=== PATIENT | male | born 1960 | race Caucasian/White ===

== ENCOUNTER 2023-10-04 18:55 | Inpatient (IN) | payer OTHER, SELFPAY ==
[2023-10-04] VITALS (10 sets, daily range): BP systolic 120–175; BP diastolic 56–93; BMI 27.0
--- NOTE | 2023-10-04 15:50 | ED.GENMED ---
History of Present Illness
General
Chief Complaint: Swallowing Problem
Source: patient and family
Exam Limitations: none
Time Seen by Provider: 10/04/23 15:09
Nursing documentation reviewed up to this point in time: agreed with
History of Present Illness
History of Present Illness:
63-year-old male diabetic TIA a month ago slurred speech started yesterday associated with headache, similar but less severe to when he had a TIA was admitted to the hospital in [place] and negative MRI negative carotids at that time was on 21 days
of Plavix and then switch to aspirin he states he did not have any aspirin for 4 days but did take it today
Daughter who is with him states yesterday his speech seemed off patient states he had trouble swallowing
Past History
Past History
ED Past Medical History: CVA (TIA), HTN and NIDDM
Social History
Tobacco: Non-smoker
Alcohol: None
Drug: None
Personal:
Living: with family
Employment: Retired
Review of Systems
Review of Systems
All Other Systems: Not applicable
Constitutional: Denies fever or fatigue
EENT: Reports no symptoms
Respiratory: Reports no symptoms
Cardiac: Reports no symptoms
ABD/GI: Reports no symptoms
: Reports no symptoms
Neurological: Reports headache and other (Slurred speech, trouble swallowing)
Hematologic/Lymphatic: Reports no symptoms
Phy Exam
Physical Exam
Physical Exam:
Physical Exam
General: no apparent distress, not acutely ill
Neck: No joint midline trachea
Heart: s1/s2 regular rate and rhythm, no murmur. equal radial pulses.
Lungs: no acute respiratory distress. clear bilaterally
Abdomen: Nontender
Neuro: alert and oriented. Speech is slightly slurred muscle strength 5 out of 5 no tenderness over the temporal artery
Skin: no rash
Psychiatric: well kept. interactive and cooperative
Extremities: no edema.
Course
Orders/Labs/Results
Orders:
Orders
10/04/23 14:[address] [CT Head W/o Iv Contrast] Urgent
Comment:
Reason For Exam: hx of TIA, dysphagia
10/04/23 15:50
Cardiac Monitoring- Treatment ONCE
Complete Blood Count/With Diff Urgent
Comprehensive Metabolic Panel Urgent
PTT Urgent
Prothrombin Time Urgent
10/04/23 15:51
Electrocardiogram (*1) Stat
Reason for Study: Other
Other Reason for Exam: neuro symptoms
EKG- Treatment ONCE
ESR [Erythrocyte Sed Rate] Urgent
Vital Signs
Initial and Last Documented VS:
Initial Vital Signs
Temp Pulse Resp BP Pulse Ox
98.3 F 88 18 175/93 99
10/04/23 14:03 10/04/23 14:03 10/04/23 14:03 10/04/23 14:03 10/04/23 14:03
Last Documented Vital Signs
Temp Pulse Resp BP Pulse Ox
98.3 F 66 18 150/80 96
10/04/23 14:03 10/04/23 15:12 10/04/23 15:12 10/04/23 15:12 10/04/23 15:12
MDM/Problems Addressed
Differential Diagnosis Includes:
TIA CVA mass malignancy temporal arteritis other stroke mimic hypertensive urgency
MDM/Problems Addressed:
Slurred speech trouble swallowing
Chronic conditions affecting care: DM and HTN
Acute Exacerbation and/or Progression of Chronic Illness: DM and HTN
*Radiology
Radiology exam reviewed: radiology read reviewed
*Pulse Oximetry
Patient hypoxic: no
*EKG
Interpreted by ED Provider?: Yes
Interpretation: abnormal
Comparison EKG: no comparison EKG present
Heart Rate: 78
Rate: normal
Rhythm: sinus
Ischemia: no ischemia
*Soaping Machine Back Tender Interpretation
Rate: normal
Interpretation: normal
Heart Rate: 78
Rhythm: sinus
*Critical Care Note
Total Time (30-74mins, 75-104mins- exclusive of procedures): Not Applicable
Update Note
Update Note:
Update concern for TIA or CVA CT noted symptoms are mild but I think the real versus recrudescence, most recent symptoms started about 24 hours ago therefore not a lytic candidate he was off his aspirin for 4 days
ED Attending Note
-
Portions of this chart may have been created with voice recognition software.� Occasional wrong word or��sound alike� substitutions may have occurred due to the inherent limitations of voice recognition software.
Discharge Plan
Departure
Patient Disposition: Admit
Date of Disposition: 10/04/23
Time of Disposition: 15:54
Admit to: Telemetry
Presentation/result/management discussed w/ accepting MD/DO: Hospitalist
Patient with high blood pressure during this ER visit?: Yes
Condition: Good
Discharge Problem:
Brain TIA
Interventions
Interventions:
*Risk Screen - Suicide Last Done: 10/04/23 14:05
*General Assessment Last Done: 10/04/23 14:05
*Neglect/Abuse Screening Last Done: 10/04/23 14:05
Discharge Date and Time
Print Language: LATVIAN
[2023-10-04 16:06] LABS: % Basophils 0.7 % (0-2); % Eosinophils 1.6 % (0-6); % Immature Granulocytes 0.4 % (0-0.5); % Lymphocytes 28.5 % (20.5-51.1); % Monocytes 9.1 % (1.7-9.3); % Neutrophils 59.7 % (42.2-75.2); Absolute Eosinophils 0.1 10^3/uL (0-0.7); Absolute Lymphocytes 1.6 10^3/uL (1.2-3.4); Absolute Monocytes 0.5 10^3/uL (0.1-0.6); Absolute Neutrophils 3.4 10^3/uL (1.4-6.5); Hematocrit 37.1 % (39.0-52.0); Hemoglobin 12.6 g/dL (13.0-18.0); Mean Corpuscular Hgb 28.4 pg (27.0-31.0); Mean Corpuscular Volume 83.6 fL (80.0-94.0); Nucleated Red Blood Cells % 0 % (-); Platelet Count 391 10^3/uL (130-400); Red Blood Cell Count 4.44 10^6/uL (4.70-6.10); Red Cell Dist. Width 13.3 % (11.5-14.5); White Blood Cell Count 5.7 10^3/uL (4.8-10.8)
[2023-10-04 16:16] LABS: Erythrocyte Sed Rate 14 mm/hour (0-20); INR 1.09
[2023-10-04 16:17] LABS: APTT 32.1 Sec (23.4-35.0)
[2023-10-04 16:20] LABS: ALT (SGPT) 16 U/L (0-50); AST (SGOT) 21 U/L (17-59); Albumin 4.4 g/dl (3.5-5.0); Alkaline Phosphatase 48 U/L (38-126); Blood Urea Nitrogen 22 mg/dl (9-20); Carbon Dioxide 27 mmol/L (22-30); Chloride 102 mmol/L (98-107); Glucose 130 mg/dl (70-99); Potassium 4.5 mmol/L (3.5-5.1); Sodium 139 mmol/L (135-145); Total Bilirubin 0.5 mg/dl (0.2-1.3); Total Protein 7.2 g/dl (6.3-8.2); eGFR > 60.00
[2023-10-04] MEDS: ASPIRIN 325 MG PO (16:27)
[2023-10-04] MEDS: TYLENOL 650 MG PO (16:27)
--- NOTE | 2023-10-04 17:52 | HPS.HSE ---
Addendum entered and electronically signed by Tony Tanner MD 10/05/23 08:01:
I personally performed a history and physical exam of the patient and discussed management with the resident. I reviewed the resident's note and agree with the documented findings and plan of care HPI/CC.
Original Note:
Family Physician
-
Family Physician: Jasper Muñoz
Chief Complaint
-
Speech difficulty
History of Present Illness
63-year-old male with history of type 2 diabetes, who presented to the ED with slurred speech, headache, and difficulty swallowing. Slurred speech which patient describes as a 'heavy tongue' with right sided tongue swelling and leftward deviation,
began yesterday at about 2:30pm while pt was having pizza with his family. Pt and his daughter noticed slurred speech.
Headache is a daily recurring headache x 2 months starting on right posterior neck, radiating forward to his right eye. Not helped by over the counter analgesics or Oxycodone.
Chronic swallowing difficulty which patient attributes to history of cervical spine osteophytes, however, it appears to be worse with his swollen tongue and speech difficulty. He also describes a chronic, intermittent right eye swelling with tearing
which he says has been going on for years.
Patient denies any new foods/condiments prior to onset, no recent illness, changes in vision or hearing, LOC, trauma or other neurologic deficits.
History of similar presentation (swollen left-deviated tongue, slurred speech) on August 31 in [place], where he was admitted to [facility] for TIA. CTA head and neck, MRI brain, Echo were benign. He recalls being treated with a steroid and
symptoms resolved within one week of onset.
Medical History
Past Medical History
Past Medical History: Reports NIDDM and Other (TIA)
Past Surgical History: Reports Orthopedic (Multiple right knee surgeries)
Social History
Tobacco: Non-smoker
Alcohol: Occasional
Drug: None
Personal:
Living: With Family
Employment: Retired
Family History
Family History: Diabetes
Allergies / Home Medications
Allergies reflects when Allergies were last updated in [employer].
Home Medications with original date entered in [employer]
Allergy/Medication List:
Allergies
Allergy/AdvReac Type Severity Reaction Status Date / Time
Penicillins Allergy Mild Rash Verified 10/04/23 14:14
azithromycin AdvReac Intermediate abdominal Verified 10/04/23 14:14
pain
Home Medications
aspirin 81 mg chewable tablet 81 mg PO DAILY 10/04/23
atorvastatin 20 mg tablet 20 mg PO QPM 10/04/23
fenofibrate 160 mg tablet 160 mg PO QPM 10/04/23
insulin lispro protamine-lispro 100 unit/mL (75-25) subcutaneous pen 23 unit SC QPM 10/04/23
insulin lispro protamine-lispro 100 unit/mL (75-25) subcutaneous pen 25 unit SC DAILY 10/04/23
lidocaine 5 % topical patch (Lidoderm) 1 patch topical DAILYPRN PRN back pain 10/04/23
metformin 500 mg tablet,extended release 24 hr 1,000 mg PO BIDWMEAL 10/04/23
oxycodone 10 mg tablet 10 mg PO Q6HPRN PRN moderate pain 10/04/23
pantoprazole 40 mg tablet,delayed release 40 mg PO DAILY 10/04/23
semaglutide 1 mg/dose (4 mg/3 mL) subcutaneous pen injector (Ozempic) 1 mg SC SA 10/04/23
Review of Systems
-
History Source: Patient
Constitutional: Denies Fever or Fatigue
EENT: Reports Other (Right tongue swelling, swallowing difficulty); Denies Sore Throat or Mouth Pain
Respiratory: Denies No Symptoms
Cardiac: Denies No Symptoms
Abdomen/GI: Denies No Symptoms
Neurological: Reports Headache and Other (no changes in vision); Denies Dizzy, Weakness or Numbness
Physical Exam
Vital Signs
Vital Signs
Temp Pulse Resp BP Pulse Ox
98.3 F 68 17 153/79 98
10/04/23 14:03 10/04/23 16:00 10/04/23 16:00 10/04/23 16:00 10/04/23 16:00
Physical Exam
General: Well Developed, Well Nourished, No Apparent Distress, Comfortable and Conversant; No Respiratory Distress
HEENT: NormoCephalic, Moist mucous membranes and Other (swollen right tongue, with no redness/lesions. no scalp tenderness); No Anicteric
Respiratory: Clear and Non Labored Respirations; No Wheezes, Rales, Rhonchi or Crackles
Cardiac: S1/S2, Regular Rhythm and Tracey's Sign; No Murmur, Rub, Peripheral Edema, Calf Tenderness or Carotid Bruits
Musculoskeletal: Other (mild tenderness to palpation over right superior trapezius muscle); No Clubbing, No Clubbing or No Edema
Skin: Warm and Dry; No Rash, Jaundice, Ulcers or Lesions
Neuro: Awake, Alert, Oriented, AO x 3, No Motor Deficits, Nonfocal/grossly intact, No Sensory Deficits and Other (Leftward deviation of tongue on forward protrusion. Minimal rightward tongue movement, full movement of tongue to left side); No Tremors
Psych: Calm
Laboratory Results
-
10/04/23 15:56
10/04/23 15:56
Laboratory Results
PT 14.0 Sec (11.4-14.6) 10/04/23 15:56
INR 1.09 10/04/23 15:56
APTT 32.1 Sec (23.4-35.0) 10/04/23 15:56
Total Bilirubin 0.5 mg/dl (0.2-1.3) 10/04/23 15:56
AST 21 U/L (17-59) 10/04/23 15:56
ALT 16 U/L (0-50) 10/04/23 15:56
Alkaline Phosphatase 48 U/L (38-126) 10/04/23 15:56
Impression/Plan
-
IMPRESSION:
63-year-old male with history of type 2 diabetes, who presented to the ED with slurred speech, headache, and swallowing difficulty
PLAN:
Speech difficulty/swallowing difficulty/tongue swelling
Likely angioedema, unclear cause
Unrelated to specific new foods or medications
Longstanding history of intermittent right eye swelling with watering.
Unlikely TIA/CVA: Similar presentation 5 weeks ago with normal CTA head/neck, brain MRI. No other neurological deficits
-Speech evaluation
-CT neck with contrast. Will consider CT of cervical spine
-Clear liquids for now given risk of aspiration
-Decadron, antihistamines (Benadryl, famotidine)
Type 2 diabetes mellitus
-Hold metformin for contrast CT
-Continue insulin home doses
-Low res insulin sliding scale, Accu-Cheks
History of TIA:
Questionable, given similar presentation
-Continue aspirin 81 mg
DVT prophylaxis: Lovenox subQ
CODE STATUS: Full code
--- NOTE | 2023-10-04 18:32 | W.PN.UPDATE ---
Update Note
Progress Note Update
Seen and examined by me independently in collaboration with resident Danni.
Past medical history/social history/medications/allergies reviewed.
Lab data and imaging data reviewed.
Patient with a history of diabetes hypertension and a history of possible TIA while he was down in [place] last month presents back with trouble with speech which is garbled and swallowing difficulty. He started to notice the symptoms since
yesterday. Along with that he has a right-sided headache starting in the base of the neck all the way up to the right high. The headache is been going on for 7 weeks. Pretty much daily. He apparently had a cervical disc problem in the past with
osteophytes. That was 2 years ago. And there was probably asymptomatic after that. There was some discussions about surgery need then.
He himself noticed tongue swelling since yesterday. He also noted tongue deviated to the left because of right-sided tongue swelling. It was far worse when it happened last time when he was in [place].
When he was down in [place] for TIA workup he actually went because his tongue was swollen and he had a speech and swallowing difficulty. He tells me that he had a dose of steroids and he had benefit with this tongue swelling. His tongue swelling
resolved over a week. No prior history of angioedema's of the tongue. He was worried if starting of Ozempic made a difference so he stopped that. Other than Ozempic he was on his usual medication without major changes. Not on JOSEY inhibitors or
ARB. Despite all of Ozempic a had recurrence of his tongue swelling. He said post TIA he was put on 21 days of dual antiplatelet agents and since he thought it was not TIA and more tongue issue he stopped taking aspirin 4 days ago. He took it
today again with his recurrence of symptoms.
No motor weakness or sensory disturbances.
Tongue swelling predominantly right-sided noted. Tongue deviated to the left. Uvula central. No facial nerve weakness. No motor weakness.
No cervical lymphadenopathy.
Hemodynamics noted.
Garbled speech with swallowing difficulty suspect more related to tongue swelling. Rule out pharyngeal wall edema coming in the way of swallowing. Seems to be recurrent. More concerned about recurrent angioedema scenario. Rule out any structural
neck issue.
Clinically not sounding like a TIA. I cannot explain his headache which I suspect may be cervical disc disease.
Will start on steroids and Benadryl. Will obtain a CT of the neck with contrast.
Follow clinical response to steroids and CT imaging and if it turns out to be angioedema we will refer to allergy and immunology.
--- NOTE | 2023-10-04 21:30 | PTCARENOTE ---
Received patient from ER. stable vitals. AAOx3. c/o 06/22 right side neck pain ( chronic). NPO. Sinus rhythm on tele. POC reviewed with patient.
[2023-10-04] MEDS: BENADRYL 25 MG IV (21:31)
[2023-10-04] MEDS: NSS 1000 IV (21:33)
[2023-10-04] MEDS: DECADRON 4 MG IV (21:33)
[2023-10-04] MEDS: NSS (PRESERVATIVE FREE) 8 ML IV (21:35)
[2023-10-04] MEDS: PEPCID 20 MG IV (21:35)
[2023-10-04] MEDS: TRICOR 145 MG PO (21:38)
[2023-10-04] MEDS: LOVENOX 40 MG SC (21:38)
[2023-10-04] MEDS: LIPITOR 40 MG PO (21:42)
[2023-10-05 00:28] LABS: Glucose - Point of Care 176 mg/dl (70-99)
[2023-10-05] MEDS: NOVOLOG FLEXPEN-LOW RESISTANCE 1 UNITS SC (00:31)
[2023-10-05 03:22] VITALS: BP 124/55
[2023-10-05] MEDS: BENADRYL 25 MG IV ×4 (04:17→20:42)
[2023-10-05 06:09] LABS: Glucose - Point of Care 214 mg/dl (70-99)
[2023-10-05] MEDS: NOVOLOG FLEXPEN-LOW RESISTANCE 2 UNITS SC (06:10)
[2023-10-05] MEDS: DECADRON 4 MG IV ×3 (06:11→20:42)
[2023-10-05 07:24] VITALS: BP 111/53
[2023-10-05 08:00] LABS: Glucose - Point of Care 234 mg/dl (70-99)
[2023-10-05] MEDS: PEPCID 20 MG IV (09:11)
[2023-10-05] MEDS: NSS (PRESERVATIVE FREE) 8 ML IV (09:11)
[2023-10-05] MEDS: LOW STRENGTH ASPIRIN 81 MG PO (09:12)
[2023-10-05] MEDS: NSS 1000 IV (09:15)
[2023-10-05 11:46] VITALS: BP 144/74
--- NOTE | 2023-10-05 11:53 | PTOTSP ---
SPEECH THERAPY SWALLOW/SPEECH/LANGUAGE/COGNITIVE COMMUNICATION EVALUATION:
Patient exhibits clinical signs of oral dysphagia, in patient with known osteophytes per patient report. Patient with history of globus sensation in throat with osteophytes, which patient reported using compensatory strategies including liquid wash
and taking small bites/sips to accommodate. Patient currently without CXR. WBC WNL and breathing comfortably on room air. At this time, current oral dysphagia symptoms appear to be acutely related to Right lingual swelling. Chronic pharyngeal
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 Recommend Regular texture diet and thin liquids with aspiration
precautions including: Upright positioning; Small single sips/bites; Slow rate of intake; Liquid wash/alternate textures; Check for pocketing on Right; Chew on Left; Finger/lingual sweep. Medications whole with liquid, one at a time. Could consider
an Outpatient VSE to further assess pharyngeal swallow function if concern for swallow safety and/or aspiration arises. At this time, swallow safety appears intact while swallow efficiency appears to be impaired due to lingual swelling. Speech
therapy to follow, assess diet tolerance and modify as appropriate, monitor CXR and labs, determine indication for inpatient VSE if indicated/appropriate, and provide continued diagnostic swallow therapy as appropriate.
Patient exhibits mild speech impairment characterized by mild dysarthria and reduced articulatory accuracy secondary to lingual swelling. Expressive and receptive language, voice, and cognitive communication skills appear grossly WFL at this time.
Speech therapy for dysarthria is not indicated at this time; patient educated on compensatory strategies and etiology of tongue swelling remains unknown.
RECOMMEND:
1) Regular texture diet and thin liquids
2) Aspiration precautions: Upright positioning; Small single sips/bites; Slow rate of intake; Liquid wash/alternate textures; Check for pocketing on Right; Chew on Left; Finger/lingual sweep
3) Medications whole with liquid, one at a time
4) consider an Outpatient VSE to further assess pharyngeal swallow function if concern for swallow safety and/or aspiration arises
5) Speech therapy to follow
[2023-10-05 12:02] LABS: Glucose - Point of Care 281 mg/dl (70-99)
--- NOTE | 2023-10-05 12:47 | W.PN.HOSP.TC ---
Documented by User: Danni Bullard MD, Resident 10/05/23 13:46
Today's Communication/Plan
-
Barium swallow, ENT
Assessment / Plan
Assessment / Plan
IMPRESSION:
63-year-old male with history of type 2 diabetes, who presented to the ED with slurred speech, headache, and swallowing difficulty
PLAN:
Speech difficulty/swallowing difficulty/tongue swelling
Likely angioedema, unclear cause
Unrelated to specific new foods or medications. Patient discontinued Ozempic after first occurrence. Was not on aspirin prior to first occurrence.
Longstanding history of intermittent right eye swelling with watering.
Unlikely TIA/CVA: Similar presentation 5 weeks ago with normal CTA head/neck, brain MRI. No other neurological deficits
-Speech evaluation: Recommend Regular texture diet and thin liquids with aspiration precautions including: Upright positioning; Small single sips/bites; Slow rate of intake; Liquid wash/alternate textures; Check for pocketing on Right; Chew on Left;
Finger/lingual sweep. Medications whole with liquid, one at a time
-CT neck with contrast. Will consider CT of cervical spine
-Restart diet
-Decadron, antihistamines (Benadryl, famotidine)
Type 2 diabetes mellitus
-Diabetic diet
-Hold metformin for contrast CT
-Continue insulin home doses
-Low res insulin sliding scale, Accu-Cheks
History of TIA:
Questionable, given similar presentation
-Continue aspirin 81 mg
DVT prophylaxis: Lovenox subQ
CODE STATUS: Full code
Anticipated Discharge: Within 24 hours
Subjective/Interval History
-
Date of Service: October 05, 2023
Objective Data
-
Vital Signs:
Vital Signs
Temp Pulse Resp BP Pulse Ox
97.7 F 94 18 144/74 97
10/05/23 11:46 10/05/23 11:46 10/05/23 11:46 10/05/23 11:46 10/05/23 11:46
I&O
10/04/23 10/05/23 10/06/23
06:59 06:59 06:59
Intake Total 800 / 800
Balance 800 / 800
Review of Systems
-
History Source: Patient
EENT: Reports Other (Slurred speech and right sided swelling of tongue)
Abdomen/GI: Reports No Symptoms; Denies Abdominal Pain
Neuro: Reports Headache (originating in right superior trapezius, radiating to right eye); Denies Weakness or Numbness
Physical Exam
-
General: Well Developed, Well Nourished, No Apparent Distress and Comfortable
HEENT: Moist Mucous Membranes, PERRLA and Other (Right sided tongue swelling. Left-sided tongue deviation)
Respiratory: Clear to Auscultation and Non Labored Respirations; Negative Wheezes, Rales, Rhonchi or Crackles
Cardiac: Regular Rhythm and S1/S2; Negative Murmur, Rub or Calf Tenderness
GI: Soft, Nontender, Nondistended and Normal Bowel Sounds
Musculoskeletal: No Clubbing, No Cyanosis and No Edema
Skin: Warm and Dry; Negative Rash or Ulcers
Neuro: Awake, Alert, Oriented, AO x 3, No Motor Deficits and Nonfocal/Grossly Intact
Psych: Calm

Documented by User: Tony Tanner MD 10/05/23 15:14
Assessment / Plan
Assessment / Plan
IMPRESSION:
63-year-old male with history of type 2 diabetes, who presented to the ED with slurred speech, headache, and swallowing difficulty
PLAN:
Speech difficulty/swallowing difficulty/tongue swelling
Likely angioedema, unclear cause
Unrelated to specific new foods or medications. Patient discontinued Ozempic after first occurrence. Was not on aspirin prior to first occurrence.
Unlikely TIA/CVA: Similar presentation 5 weeks ago with normal CTA head/neck, brain MRI. No other neurological deficits
-Speech evaluation: Recommend Regular texture diet and thin liquids with aspiration precautions including: Upright positioning; Small single sips/bites; Slow rate of intake; Liquid wash/alternate textures; Check for pocketing on Right; Chew on Left;
Finger/lingual sweep. Medications whole with liquid, one at a time
-Restart diet
-Decadron, antihistamines (Benadryl, famotidine)
- [facility] personnel administrator - since no acute airway issues recs follow up with them as OP for angioedema.
- While searching for Causes of angioedema-hold statins in the fenofibrate which is in the literature states that is a possibility.
Dysphagia-there are 2 issues-there is chronic dysphagia and acute from tongue swelling. 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 Get a barium swallow to evaluate further. Consult spinal surgery. Continue with the steroids for
possible angioedema. Cleared for oral diet by speech today.
Type 2 diabetes mellitus
-Diabetic diet
-Hold metformin for contrast CT
-Continue insulin home doses
-Low res insulin sliding scale, Accu-Cheks
History of TIA:
Questionable, given similar presentation
-Continue aspirin 81 mg
DVT prophylaxis: Lovenox subQ
CODE STATUS: Full code
[2023-10-05] MEDS: NOVOLOG FLEXPEN-LOW RESISTANCE 300 UNITS SC (13:43)
[2023-10-05] MEDS: NOVOLOG FLEXPEN 9 UNITS SC (15:03)
[2023-10-05 15:45] VITALS: BP 138/75
--- NOTE | 2023-10-05 16:27 | CM ---
Met with pt and his daughter at bedside
Lives with his daughter, her and family
Independent, driving
Has ride at d/c
DME - none
SNF/HH - denies past hx
PCP - Dr Ashok Muñoz
Pharm - [facility]
CM will follow for d/c needs
Plan - anticipate home no needs at d/c
[2023-10-05] MEDS: LIPITOR 40 MG PO (17:44)
[2023-10-05] MEDS: TRICOR 145 MG PO (17:44)
[2023-10-05] MEDS: LOVENOX 40 MG SC (17:45)
[2023-10-05 17:46] LABS: Glucose - Point of Care 301 mg/dl (70-99)
[2023-10-05] MEDS: NOVOLOG FLEXPEN-MODERATE RESISTANCE 7 UNITS SC (17:48)
[2023-10-05] MEDS: NOVOLOG MIX 22 UNITS SC (17:49)
[2023-10-05 19:51] VITALS: BP 120/62
[2023-10-05] MEDS: PEPCID 20 MG PO (20:44)
[2023-10-05 20:59] LABS: Glucose - Point of Care 380 mg/dl (70-99)
[2023-10-05] MEDS: NOVOLOG FLEXPEN 10 UNITS SC (21:35)
[2023-10-05 23:08] VITALS: BP 107/64
[2023-10-06 00:08] LABS: Glucose - Point of Care 222 mg/dl (70-99)
[2023-10-06] MEDS: BENADRYL 25 MG IV ×2 (02:44→10:25)
[2023-10-06 03:40] VITALS: BP 115/52
[2023-10-06] MEDS: DECADRON 4 MG IV (05:35)
[2023-10-06 05:53] LABS: Hematocrit 34.5 % (39.0-52.0); Hemoglobin 11.9 g/dL (13.0-18.0); Mean Corp Hgb Conc. 34.5 g/dL (33.0-37.0); Mean Corpuscular Volume 84.1 fL (80.0-94.0); Mean Platelet Volume 10.2 fL (7.4-10.4); Platelet Count 362 10^3/uL (130-400); Red Cell Dist. Width 13.1 % (11.5-14.5); White Blood Cell Count 11.8 10^3/uL (4.8-10.8)
[2023-10-06 06:12] LABS: Blood Urea Nitrogen 30 mg/dl (9-20); Calcium 9.4 mg/dl (8.4-10.2); Carbon Dioxide 25 mmol/L (22-30); Chloride 101 mmol/L (98-107); Estimated Creatinine Clearance 73 ml/min; Glucose 285 mg/dl (70-99); Potassium 4.5 mmol/L (3.5-5.1); Sodium 135 mmol/L (135-145); eGFR > 60.00
[2023-10-06 07:00] VITALS: BP 129/69
[2023-10-06] MEDS: LOW STRENGTH ASPIRIN 81 MG PO (08:14)
[2023-10-06] MEDS: PEPCID 20 MG PO (08:14)
[2023-10-06] MEDS: NOVOLOG FLEXPEN-MODERATE RESISTANCE 7 UNITS SC ×2 (08:36→13:06)
[2023-10-06 08:39] LABS: Glucose - Point of Care 306 mg/dl (70-99)
--- NOTE | 2023-10-06 09:57 | PN.DE.MGMTRT ---
Insulin Management
- -
10/06/2023: Diabetes Management Consult
63 year old male who presented to the ED with slurred speech, headache, and swallowing difficulty with tongue swelling likely due to angioedema.
PMH: HTN, T2DM, Patient reports taking Ozempic 1mg weekly, insulin 75/25, 14 units in AM and 12 units in PM.
He reports that sx started ~ 5 weeks ago and that he stopped taking Ozempic because he thought he was having an adverse reaction.
He then increased his insulin dose to 24 units in AM and 22 units in PM and continued taking the Metformin but not the Ozempic.
Pt states that his A1C and blood sugars were well controlled ~7% prior to onset of all these issues.
It is noted that pt was txt in [place] with oral steroids for similar sx, which pt states has made his blood sugars to go up.
Current A1C 8% Cr 1.1, eGFR >60. Pt uses CGM- [employer]uro 3 for glucose monitoring at home.
Pt Awake, A/O x3, sitting up in chair, reports ongoing tongue swelling with speech difficulties. Able to discuss diabetes mgt
He was started on IV steroids- Dexa 4mg Q8 hrs contributing to Hyperglycemia; 214 to 380 yesterday.
Of note, his 1st dose of 70/30 was last night, pt received 22 units @ HS, Fasting glucose 285 this AM
Will increase AM dose of 70/30 to 28 units and PM dose to 24 units while on steroids. Cont moderate corrective insulin with meals.
Change diet from 2200 sharif to 1800 sharif. Had lengthy d/w pt regarding increased insulin requirement while on steroids.
Will cont to follow. Metformin remains on Hold.
Diabetes History
- -
Type of Diabetes: 2 requiring insulin
Pre-Admission Diabetes Regimen
10/06/23
05:30
Creatinine 1.1
Lab Results
Hemoglobin A1c Cancelled 10/05/23 06:00
Insulin Pump Settings
IP Diabetes Regimen
10/05/23 10/05/23 10/05/23
12:01 17:45 20:56
Glucose
POC Glucose 281 H 301 H 380 H
10/06/23 10/06/23 10/06/23
00:06 05:30 08:37
Glucose 285 H
POC Glucose 222 H 306 H
Patient Education
[2023-10-06] MEDS: NOVOLOG MIX 70/30 FLEXPEN 24 UNITS SC (10:10)
[2023-10-06 10:12] LABS: Glucose - Point of Care 298 mg/dl (70-99)
[2023-10-06 11:00] VITALS: BP 134/62
--- NOTE | 2023-10-06 12:42 | CON.NS ---
Consultation
-
Date/Time Consultation Performed: 10/06/2023; 12:45 pm
Performing Provider: Dwayne
Chief Complaint
History of Present Illness
This is a neurosurgical consultation on a 63-year-old gentleman who presents with an episode of slurred speech, headache, difficulty swallowing. He has a past medical history of type 2 diabetes. He reports that he has sensation that he had a heavy
tongue with right tongue swelling and left for tongue deviation, with slurred speech. He also reports a daily recurring headache for the past 2 months. 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
chronic, intermittent right eye swelling and tearing. He does report a similar episode that happened approximately 1 month prior in [place]. At that time stroke workup was negative. He reports that he was on steroids and the symptoms resolved
within 1 week of onset. He underwent a speech evaluation, and ultimately barium swallow today. He also underwent a CT scan of the cervical spine with contrast.
Patient had barium swallow test/evaluation today which demonstrates moderate airway aspiration of barium contrast. He was unable to swallow barium impregnated tablet. It was noted that there was evidence of the contrast passing through the
esophagus without evidence for obstruction. While there was evidence of severe impingement of the posterior wall of the cervical esophagus it was also noted that the patient was unable to pass the tablet from the mouth into the esophagus.
Patient seen and examined. He was noted to be eating a full, normal lunch.
He reports that he feels like he did not follow the directions appropriately, therefore, that might be why he 'messed up 'the barium swallow test.
He reports that he did see a surgeon prior in [place], who diagnosed him with DISH, and did discuss resection of the anterior osteophytes to help with his chronic swallowing difficulties.
He reports that the his new symptoms are quite different, and while his symptoms of dysarthria, and swallowing improved after his episode on September 01, 2023, they have recurred and his slurred speech has persisted.
Review of Systems
-
10 point review of systems including constitutional, ENT, cardiovascular, respiratory, GI, , neurologic, hematologic, and quadrant was performed and was negative, except for as stated in HPI.
Medication and Allergies
Home Medications
Home Medications
�Medication �Instructions �Recorded
aspirin 81 mg chewable tablet 81 mg PO DAILY Blood Clot 10/04/23
Prevention/Tx
atorvastatin 20 mg tablet 40 mg PO QPM High Cholesterol 10/04/23
fenofibrate 160 mg tablet 160 mg PO QPM High Cholesterol 10/04/23
lidocaine 5 % topical patch 1 patch topical DAILYPRN PRN back 10/04/23
(Lidoderm) pain
metformin 500 mg tablet,extended 1,000 mg PO BIDWMEAL Diabetes 10/04/23
release 24 hr
oxycodone 10 mg tablet 10 mg PO Q6HPRN PRN moderate pain 10/04/23
pantoprazole 40 mg tablet,delayed 40 mg PO DAILY Gastrointestinal 10/04/23
release Issue
semaglutide 1 mg/dose (4 mg/3 mL) 1 mg SC SA Diabetes 10/04/23
subcutaneous pen injector (Ozempic)
insulin lispro protamine-lispro 22 unit SC QACDINNER Diabetes 10/05/23
100 unit/mL (75-25) subcutaneous
pen
insulin lispro protamine-lispro 23 - 25 unit SC DAILY Diabetes 10/05/23
100 unit/mL (75-25) subcutaneous
pen
Allergies
Allergies
Allergy/AdvReac Type Severity Reaction Status Date / Time
azithromycin Allergy abdominal Verified 10/04/23 20:42
pain
Penicillins Allergy Rash Verified 10/04/23 20:42
Physical Exam
-
Exam:
Awake, alert, no apparent distress.
Pupils are equal and reactive.
Extraocular movements are full without nystagmus.
Face is symmetric.
Tongue is deviated to the left
Positive dysarthria
Uvula deviated to the left as well
Shoulder shrug symmetrical
Motor: 5/5 strength bilaterally in upper extremities and lower extremities.
Sensation to light touch intact in bilateral upper extremities lower extremities.
Gait steady
Reflexes 2+ and symmetric
Normal tone
No evidence of clonus
CT scan of the head performed on 10/04/2023 is negative for obvious lesion within the area of the jugular foramen or hypoglossal canal. CT of the head and neck with contrast performed on 10/04/2023 fails to demonstrate any obvious lesion at the level
of the jugular foramen or hypoglossal canal. There is evidence of large anterior osteophytes extending from C3-C7 noted.
CT of the neck with IV contrast performed on 10/04/2023 was reviewed. 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
Problems
-
Problem Status Onset Code
Brain TIA G45.9
Assessment / Plan
-
This is a 63-year-old gentleman that presents with episode of headache, tongue swelling, and slurred speech with chronic history of swallowing difficulties. While his CT of the neck does demonstrate large anterior osteophytes that could cause
difficulty with swallowing from an obstructive standpoint, his barium swallow demonstrates that he is unable to initiate the active swallowing from mouth into the esophagus. 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
Additionally, facial symptoms and slurred speech is not consistent with cervical spine pathology.
Agree with neurology consultation and further neurological workup to rule out any neurodegenerative disorder.
Suggest MRI of the brain with and without IV contrast.
Will follow-up
[2023-10-06 12:44] LABS: Glucose - Point of Care 303 mg/dl (70-99)
[2023-10-06] MEDS: NOVOLOG MIX 70/30 FLEXPEN 28 UNITS SC (13:08)
[2023-10-06 14:05] LABS: Glucose - Point of Care 312 mg/dl (70-99)
--- NOTE | 2023-10-06 14:07 | W.PN.UPDATE ---
Addendum entered and electronically signed by Tony Tanner MD 10/06/23 14:28:
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
Original Note:
Update Note
Progress Note Update
I saw and evaluated the patient. I reviewed the resident�s note and agree with findings and plan as documented in the resident�s note.
Patient still feels her speech is slurred. He thinks his right tongue swelling may have some slight improvement. He is able to tolerate oral diet but he had some difficulty with barium swallow and he thought he was told he aspirated during that.
Today he states that right-sided neck pain radiating from base of neck along the right side of head cumlinating at rt supraorbital area ( which he had for a month) is resolved strangely.
Denies any visual symptoms. No motor weakness.
Denies shortness of breath.
Chest is clear.
Tongue with sterile deviation to the left and the right side of the tongue is prominent which i feel now may be function of the rotation of tongue than real swelling as the size has not changed since admission. Fasiculations are seen.
No facial nerve weakness. Uvula seems central.
I doubt this is angio edema and more concerned about right sided cranial N 13 palsy.
Will hold further steroids and consult Neurology
Await barium swallow report which was ordered to rule out esophageal dysphagia from DISH cervical spine. Await neurosurgery input. Patient has chronic dysphagia per history from his cervical spine spurs and he was managing at home without
aspirational pneumonias .
[place] [facility] [place]
Total time spent on today's encounter was 52 minutes which included time spent in counseling the patient/family regarding diagnosis and treatment plan as listed above, goals of care, and symptom management. Case was discussed with nursing staff,
specialists, and care coordinators/case management. All labs and imaging personally reviewed by me. Remainder the time spent in detailed review of previous records, lab data, imaging, and other medical provider documentation.
Total time spent on today's encounter was 52 minutes which included time spent in counseling the patient/family regarding diagnosis and treatment plan as listed above, goals of care, and symptom management. Case was discussed with nursing staff,
specialists, . All labs and imaging personally reviewed by me. Remainder the time spent in detailed review of previous records, lab data, imaging, and other medical provider documentation.
--- NOTE | 2023-10-06 14:09 | CM ---
Case management following for d/c planning
Chart reviewed
Neurological workup to rule out neurodegenerative disorder.
Poss MRI of the brain with and without IV contrast
Speech
CM will follow for d/c needs
Plan - anticipate home no needs
[2023-10-06 15:00] VITALS: BP 144/68
--- NOTE | 2023-10-06 15:29 | W.PN.HOSP.TC ---
Today's Communication/Plan
-
MR cervical spine
Assessment / Plan
Assessment / Plan
IMPRESSION:
63-year-old male with history of type 2 diabetes, who presented to the ED with slurred speech, headache, and swallowing difficulty
PLAN:
Speech difficulty/swallowing difficulty/tongue swelling
Unclear cause, angioedema vs neurological cause
Unrelated to specific new foods or medications. Patient discontinued Ozempic after first occurrence. Was not on aspirin prior to first occurrence.
Unlikely TIA/CVA: Similar presentation 5 weeks ago with normal CTA head/neck, brain MRI. No other neurological deficits. Resolved in one week
Speech evaluation: Recommend Regular texture diet and thin liquids with aspiration precautions
- Per ENT: no acute airway process - can follow up with them as OP for angioedema.
- Continue to hold statin and fenofibrate while workup is ongoing
Chronic headache:
Appears cervical. Originates in R superior trapezius, radiating upwards to right eye
Resolved today. Possibly resolved with steroid treatment
Dysphagia-
there are 2 issues-there is chronic esophageal dysphagia and acute oropharyngeal from tongue swelling/weakness. 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
Barium swallow: Moderate aspiration of barium contrast. very large bridging anterior vertebral body endplate osteophytes at multiple cervical levels consistent with severe diffuse idiopathic skeletal hyperostosis (DISH) causing severe impingement on
the posterior wall of the cervical esophagus.
-Discontinue steroid
-Neurosurgery consult
Type 2 diabetes mellitus
-Diabetic diet
-Hold metformin for contrast CT
-Continue insulin with modifications per diabetic [employer]
-Low res insulin sliding scale, Accu-Cheks
History of TIA:
Questionable, given similar presentation
-Continue aspirin 81 mg
DVT prophylaxis: Lovenox subQ
CODE STATUS: Full code
Data:
Speech evaluation: Recommend Regular texture diet and thin liquids with aspiration precautions including: Upright positioning; Small single sips/bites; Slow rate of intake; Liquid wash/alternate textures; Check for pocketing on Right; Chew on Left;
Finger/lingual sweep. Medications whole with liquid, one at a time.
Barium swallow X-ray:
1. MODERATE AIRWAY ASPIRATION of BARIUM CONTRAST.
2. Very large bridging anterior vertebral body endplate osteophytes at multiple cervical levels consistent with severe diffuse idiopathic skeletal hyperostosis (DISH) causing severe impingement on the posterior wall of the cervical esophagus.
3. Mild esophagitis in the mid and distal esophagus.
4. Mild to moderate gastroesophageal reflux.
5. Unable to swallow a barium impregnated tablet.
Anticipated Discharge: Within 24 hours
Subjective/Interval History
-
Date of Service: October 06, 2023
Objective Data
-
Labs:
Laboratory Results
10/06/23
05:30
WBC 11.8 H
Hgb 11.9 L
Hct 34.5 L
Plt Count 362
Sodium 135
Potassium 4.5
Chloride 101
Carbon Dioxide 25
BUN 30 H
Creatinine 1.1
Glucose 285 H
Calcium 9.4
Vital Signs:
Vital Signs
Temp Pulse Resp BP Pulse Ox
97.8 F 88 18 134/62 98
10/06/23 11:00 10/06/23 11:00 10/06/23 11:00 10/06/23 11:00 10/06/23 11:00
I&O
10/05/23 10/06/23 10/07/23
06:59 06:59 06:59
Intake Total 800 / 800 840 / 840
Balance 800 / 800 840 / 840
Review of Systems
-
History Source: Patient
EENT: Reports Other (right sided tongue swelling, slurring of speech)
Respiratory: Reports No Symptoms; Denies Cough or Trouble Breathing
Cardiac: Denies Chest Pain
Neuro: Reports No Symptoms; Denies Headache or Weakness
Physical Exam
-
General: Well Developed, Well Nourished, No Apparent Distress and Comfortable; Negative Respiratory Distress
HEENT: Normocephalic, Atraumatic, Moist Mucous Membranes and Other (right sided tongue swelling)
Respiratory: Clear to Auscultation and Non Labored Respirations; Negative Wheezes, Rales, Rhonchi or Crackles
Neuro: Awake, Alert, Oriented, AO x 3 and Other (rightsided tongue fasciculations )
Psych: Calm
[2023-10-06 17:05] LABS: Glucose - Point of Care 185 mg/dl (70-99)
[2023-10-06] MEDS: LOVENOX 40 MG SC (17:25)
[2023-10-06] MEDS: TRICOR 145 MG PO (17:25)
[2023-10-06] MEDS: NOVOLOG FLEXPEN-MODERATE RESISTANCE SC (17:45)
[2023-10-06] MEDS: NOVOLOG MIX 24 UNITS SC (17:46)
--- NOTE | 2023-10-06 17:50 | PTCARENOTE ---
Verified with Dr. Tanner and Diabetic RN the 17:00 70/30 insulin order with pt blood glucose of 185
[2023-10-06 18:40] LABS: Glucose - Point of Care 238 mg/dl (70-99)
[2023-10-06 21:55] LABS: Glucose - Point of Care 155 mg/dl (70-99)
[2023-10-06 23:21] VITALS: BP 142/75
--- NOTE | 2023-10-07 00:35 | CON.NEURO4 ---
Consultation - Neurology 4
-
CONSULTING PHYSICIAN: Buddy Muñoz MD(Neurology)
REFERRING PHYSICIAN: Hospitalist
DICTATED BY: Buddy Muñoz
DATE/TIME OF REQUEST: 10/06/2023
DATE/TIME OF CONSULTATION: 10/06/2023 1130
Reason for Consultation: Slurred speech
History of Present Illness:
This is a 63 year old right handed male who has presented to the hospital with chief complaint of slurred speech. He gives a h/o HTN, DM,TIA OA with cervical DJD.
He had bee in his [place] till August 31. At that time he had slurred speech and dysarthria. He was admitted to [facility]. MRI head did not reveal acute disease
He then moved to [place]. He now presents with swollen and deviated tongue slurred speech dysphagia and headaches
Patient had barium swallow test/evaluation today which demonstrates moderate airway aspiration of barium contrast. He was unable to swallow barium impregnated tablet. It was noted that there was evidence of the contrast passing through the
esophagus without evidence for obstruction. While there was evidence of severe impingement of the posterior wall of the cervical esophagus it was also noted that the patient was unable to pass the tablet from the mouth into the esophagus.
Past Medical History: HTN, NIDDM
Surgical History: R. Knee surgery
Family History: NIDDM
Social History: lives alone
Allergies: PCN, Azithromycin
Home Medications:
Review of Symptoms:
Patient denies any fever, headache, chest pain, shortness of breath, GI or symptoms.
�Per the HPI.�All systems are reviewed negative except above.
�- Remove any of these problems that patient may have complained about in the HPI.
�- If patient is unresponsive, intubated or demented, say 'Per the HPI. I am unable to obtain a complete review of systems�because of patient's inability to provide history.'
Vital Signs:
The patient has a
Temp Pulse Resp BP Pulse Ox
97.8 F 88 18 134/62 98
Physical Exam:
The patient is afebrile, heart sounds S1 and S2 are (regular / irregular), and chest is clear to auscultation bilaterally.
Neurologic Examination:
The patient is awake, alert and oriented x 3. (He/She) is able to follow commands and answer questions appropriately. There is no aphasia or dysarthria. On cranial nerve assessment, pupils are 3 mm bilateral, round and reactive to light and
accommodation. Visual holland are full. Extraocular movements are intact. Facial sensations are intact and bilaterally symmetrical, there is no facial asymmetry. Hearing is intact bilaterally to normal conversation volume. Palate and uvula are
midline.
Tongue Hemiatrophy and deviated to Left. Sternocleidomastoid strengths are full bilaterally.
Motor strengths are 5/5 bilateral upper and lower extremities on medical research [place] scale. There is no drift or involuntary movement noted.
Deep tendon reflexes are 2+ bilateral upper and lower extremities and Babinski is absent bilaterally.
Sensations of pain, touch, temperature and vibration are intact and bilaterally symmetrical. There was no extinction noted on double simultaneous stimulation. Coordination is intact by finger to nose bilaterally. Gait WNL. Rombergs negative
Lab Results:
Neuro Imaging: Atrophy. Small vessel disease
Impression:
Mr. KAMILLA GALVAN is a 63 year old M who has presented to the hospital with (symptoms/chief complaint).
Differentials for the patient's presentation include:
1. Cervical DJD
2. Hypoglossal Nerve injury
3. Brainstem infarct(medulla)
Recommendations:
1. MRI C-Spine
2. MRI brain with and without Nimo
3. Speech therapy
4. Pain management for JUANCARLOS to C-Spine
Discussed patient care with: Hospitalist
Vital Signs and Labs
-
Vital Signs and Labs:
Vital Signs
Temp Pulse Resp BP Pulse Ox
36.4 C 65 17 142/75 96
10/06/23 23:21 10/06/23 23:21 10/06/23 23:21 10/06/23 23:21 10/06/23 23:21
Lab Results
10/06/23 05:30
10/06/23 05:30
PT 14.0 Sec (11.4-14.6) 10/04/23 15:56
INR 1.09 10/04/23 15:56
APTT 32.1 Sec (23.4-35.0) 10/04/23 15:56
Sodium 135 mmol/L (135-145) 10/06/23 05:30
Potassium 4.5 mmol/L (3.5-5.1) 10/06/23 05:30
BUN 30 mg/dl (9-20) H 10/06/23 05:30
Glucose 285 mg/dl (70-99) H 10/06/23 05:30
Calcium 9.4 mg/dl (8.4-10.2) 10/06/23 05:30
Medications
-
Active Medications
Generic Name Dose Route Start Last Admin
Trade Name Freq PRN Reason Stop Dose Admin
Aspirin 81 mg 10/05/23 08:00 10/06/23 08:14
Aspirin 81 Mg Chewable Tablet PO 11/02/23 07:59 81 mg
DAILY LAWSON Administration
Atorvastatin Calcium 40 mg 10/04/23 22:00 10/05/23 17:44
Atorvastatin (Lipitor) 40 Mg Tablet PO 11/01/23 21:59 40 mg
QPM LAWSON Administration
Dextrose 12.5 grams 10/05/23 14:51
Dextrose 50% (0.5 Grams/Ml) 50 Ml Syringe IV 11/02/23 14:50
[id number] PRN
hypoglycemia
Protocol
Enoxaparin Sodium 40 mg 10/04/23 20:36 10/06/23 17:25
Enoxaparin Sodium 40 Mg/0.4 Ml Syringe SC 11/01/23 20:35 40 mg
QPM LAWSON Administration
Fenofibrate 145 mg 10/04/23 21:00 10/06/23 17:25
Fenofibrate 145 Mg Tablet PO 11/01/23 20:59 145 mg
QPM LAWSON Administration
Glucagon 1 mg 10/05/23 14:51
Glucagon 1 Mg Vial IM 11/02/23 14:50
PRN PRN
hypoglycemia
Protocol
Insulin Aspart 0 units 10/05/23 16:30 10/06/23 17:45
Insulin Aspart Moderate Resistance 300 Units/3 Ml Pen.Injctr SC 11/02/23 16:29 Not Given
AC LAWSON
Protocol
Insulin Aspart Prota 70%/Aspart 30% 28 units 10/06/23 12:00 10/06/23 13:08
Novolog Mix 70/30 (100 Units/Ml) 3 Ml Flexpen SC 11/03/23 11:59 28 units
DAILY LAWSON Administration
Insulin Aspart Prota 70%/Aspart 30% 24 units 10/06/23 17:00 10/06/23 17:46
Novolog Mix 70/30 (100 Units/1 Ml) 10 Ml Vial SC 11/02/23 16:59 24 units
DAILY@1700 LAWSON Administration
Oxycodone HCl 10 mg 10/04/23 20:36
Oxycodone 10 Mg Regular Release Tablet PO 10/18/23 20:35
Q6HPRN PRN
moderate pain
Pantoprazole Sodium 40 mg 10/07/23 08:00
Pantoprazole 40 Mg Delayed Release Tablet PO 11/04/23 07:59
DAILY LAWSON
Prednisone 40 mg 10/07/23 08:00
Prednisone 20 Mg Tablet PO 11/04/23 07:59
DAILY LAWSON
Sodium Chloride 0 flush 10/04/23 21:00
Sodium Chloride 0.9% (Flush) Syringe IV 11/01/23 20:59
PER PROTOCOL LAWSON
Home Medications
�Medication �Instructions �Recorded
aspirin 81 mg chewable tablet 81 mg PO DAILY Blood Clot 10/04/23
Prevention/Tx
atorvastatin 20 mg tablet 40 mg PO QPM High Cholesterol 10/04/23
fenofibrate 160 mg tablet 160 mg PO QPM High Cholesterol 10/04/23
lidocaine 5 % topical patch 1 patch topical DAILYPRN PRN back 10/04/23
(Lidoderm) pain
metformin 500 mg tablet,extended 1,000 mg PO BIDWMEAL Diabetes 10/04/23
release 24 hr
oxycodone 10 mg tablet 10 mg PO Q6HPRN PRN moderate pain 10/04/23
pantoprazole 40 mg tablet,delayed 40 mg PO DAILY Gastrointestinal 10/04/23
release Issue
semaglutide 1 mg/dose (4 mg/3 mL) 1 mg SC SA Diabetes 10/04/23
subcutaneous pen injector (Ozempic)
insulin lispro protamine-lispro 22 unit SC QACDINNER Diabetes 10/05/23
100 unit/mL (75-25) subcutaneous
pen
insulin lispro protamine-lispro 23 - 25 unit SC DAILY Diabetes 10/05/23
100 unit/mL (75-25) subcutaneous
pen
[2023-10-07 07:00] VITALS: BP 143/75
--- NOTE | 2023-10-07 07:23 | PN.DE.MGMTRT ---
Insulin Management
- -
10/07/2023: Diabetes Management Consult Follow up
Patient admitted with slurred speech, headache, and swallowing difficulty with tongue swelling likely due to angioedema.
PMH: HTN, T2DM, Patient reports taking Ozempic 1mg weekly, insulin 75/25, 14 units in AM and 12 units in PM.
He reports that sx started ~ 5 weeks ago and that he stopped taking Ozempic because he thought he was having an adverse reaction.
He then increased his insulin dose to 24 units in AM and 22 units in PM and continued taking the Metformin but not the Ozempic.
Pt states that his A1C and blood sugars were well controlled ~7% prior to onset of all these issues.
It is noted that pt was txt in [place] with oral steroids for similar sx, which pt states has made his blood sugars to go up.
Current A1C 8% Cr 1.1, eGFR >60. Pt uses CGM- Isauro 3 for glucose monitoring at home.
Pt Awake, A/O x3, sitting up in bed, reports ongoing tongue swelling with speech difficulties. Able to discuss diabetes mgt
Was on Dexamethasone, now Prednisone 40 mg daily. Glucose 10/05 238 to 312, trending down to 155 @ HS. Will continue 70/30 28 units in AM with 24 units with dinner with moderate corrective insulin.
Will cont to follow. Metformin remains on Hold.
Diabetes History
- -
Type of Diabetes: 2 requiring insulin
Pre-Admission Diabetes Regimen
Lab Results
Hemoglobin A1c Cancelled 10/05/23 06:00
Insulin Pump Settings
IP Diabetes Regimen
10/06/23 10/06/23 10/06/23
08:37 10:11 12:43
POC Glucose 306 H 298 H 303 H
10/06/23 10/06/23 10/06/23
14:03 17:03 18:39
POC Glucose 312 H 185 H 238 H
10/06/23
21:53
POC Glucose 155 H
Patient Education
[2023-10-07 07:47] LABS: Glucose - Point of Care 161 mg/dl (70-99)
[2023-10-07] MEDS: PROTONIX 40 MG PO (08:02)
[2023-10-07] MEDS: DELTASONE 40 MG PO (08:02)
[2023-10-07] MEDS: LOW STRENGTH ASPIRIN 81 MG PO (08:03)
--- NOTE | 2023-10-07 08:41 | W.PN.NEURO.1 ---
Documented by User: Yaa Blanco NP 10/07/23 12:17
Today's Communication / Plan
-
.
Neuro Assessment/Plan
Assessment
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 Patient reports having
similar symptoms one month ago and was evaluated at a hospital in [place] and underwent an unremarkable stroke workup. He completed 21 days of DAPT and continues on aspirin 81mg daily. He also completed a steroid taper and reports that his symptoms
resolved in about one week.
-CT Head 10/04/23: No acute intracranial abnormalities.
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 Findings may contribute to the patient's difficulty swallowing. A fluoroscopic video
swallow exam in conjunction with speech pathology could be considered for further evaluation if clinically indicated.
I. Hypoglossal nerve injury, unclear etiology.
II. Acute on chronic dysphagia, C3-C7 osteophytes with some mass effect on the hypopharynx and esophagus.
III. New daily persistent headache, now resolved.
Plan
-MRI brain and cervical spine w/ and w/o contrast pending.
-Goal normotension.
-Agree with oral steroids x 7 days as patient feels this is helping improve symptoms.
-Goal normoglycemia, hbA1c is 8.0.
-ST evaluation, video swallow today.
-DVT prophylaxis.
-Patient needs follow-up with a Neurodegenerative disorder specialist at [facility] for further evaluation.
Subjective/Objective
Subjective Data
Date of Service: October 07, 2023
No acute events overnight. Patient reports ongoing right tongue swelling, left tongue deviation, swallowing difficulty, and dysarthria. He has been headache free yesterday and today which he attributes to the steroids. He denies any dizziness,
diplopia/vision changes, numbness, weakness, nausea, chest pain, palpitations, and shortness of breath.
Objective Data
Vital Signs
Temp Pulse Resp BP Pulse Ox
98.4 F 66 19 143/75 96
10/07/23 07:00 10/07/23 07:00 10/07/23 07:00 10/07/23 07:00 10/07/23 07:00
Lab Results
10/06/23 05:30
10/06/23 05:30
PT 14.0 Sec (11.4-14.6) 10/04/23 15:56
INR 1.09 10/04/23 15:56
APTT 32.1 Sec (23.4-35.0) 10/04/23 15:56
Sodium 135 mmol/L (135-145) 10/06/23 05:30
Potassium 4.5 mmol/L (3.5-5.1) 10/06/23 05:30
BUN 30 mg/dl (9-20) H 10/06/23 05:30
Glucose 285 mg/dl (70-99) H 10/06/23 05:30
Calcium 9.4 mg/dl (8.4-10.2) 10/06/23 05:30
Patient Allergies
azithromycin Allergy (Verified 10/04/23 20:42)
abdominal pain
Penicillins Allergy (Verified 10/04/23 20:42)
Rash
Review of Systems
-
History Source: Patient
EENT: Swallowing Difficulty; Negative Blurry Vision or Decreased Vision
Respiratory: Negative Cough or Trouble Breathing
Cardiac: Negative Chest Pain or Palpitations
Abdomen/GI: Negative Nausea
Neuro: Speech Problem; Negative Dizzy, Headache, Weakness, Numbness, Ataxia or Tremors
Physical Exam
-
General: Well Developed, Well Nourished and No Apparent Distress
Eyes: No Ptosis and PERRLA
HEENT: Normocephalic and Atraumatic
Neck: Full Range of Motion
Respiratory: No Dyspnea
GI: Non-distended
Extremities: No Clubbing, No Cyanosis and No Edema
Psych: Unremarkable
Extended Neurological Exam
Mood & Affect: Mood Unremarkable and Affect Unremarkable
Attention Span & Concentration: Awake, Alert, Interactive and No Difficulty with 2 Step Request
Memory: Unremarkable (AAOx3) and Able to Recall
Tremor: Hand Tremor Absent and Head Tremor Absent
Involuntary Movement: None
Speech: Quantity Unremarkable, Rate of Production Unremarkable and Dysarthric
Cranial Nerve II: Left Eye: Pupillary Reactivity Unremarkable, Pupillary Size Unremarkable and Visual [place] Intact
Cranial Nerve II: Right Eye: Pupillary Reactivity Unremarkable, Pupillary Size Unremarkable and Visual [place] Intact
Cranial Nerves III, IV, : Extraocular Movement: Extraocular Movement Full in all Directions
Cranial Nerve V: Facial Sensation: Intact to Light Touch
Cranial Nerve VII: Facial Symmetry: Normal Facial Symmetry
Cranial Nerve VIII: Hearing: Unremarkable Hearing to Normal Conversational Volume
Cranial Nerves IX, X: Palate Movement: Palate Elevation Symmetric
Cranial Nerve XI: Shoulder Shrug: Unremarkable
Cranial Nerve XII: Tongue Protusion: Deviation to Left and Other (left tongue atrophy, +fasiculations)
Muscle Strength, Overall: Full Throughout
Muscle Bulk & Tone: Bulk Unremarkable and Tone Unremarkable
Pronator Drift: No Drift in Upper Extremities and No Drift in Lower Extremities
Deep Tendon Reflexes: Trace Throughout
Cold Sensation: Reduced Moderately Distally
Vibration Sensation: Reduced Mildly Distally
Touch Sensation: Double Simultaneous Stimulation Unremarkable
Coordination: [id number]-[id number] Testing Unremarkable
Babinski Sign: Absent Bilaterally
Data Reviewed
-
CT Head: Report Reviewed and Image Reviewed
MRI Head: Pending
MRI Cervical Spine: Pending
Labs: Report Reviewed
HgbA1C: Report Reviewed
Reviewed with: Physician and Patient
Medications
-
Active Medications
Generic Name Dose Route Start Last Admin
Trade Name Freq PRN Reason Stop Dose Admin
Aspirin 81 mg 10/05/23 08:00 10/07/23 08:03
Aspirin 81 Mg Chewable Tablet PO 11/02/23 07:59 81 mg
DAILY LAWSON Administration
Atorvastatin Calcium 40 mg 10/04/23 22:00 10/05/23 17:44
Atorvastatin (Lipitor) 40 Mg Tablet PO 11/01/23 21:59 40 mg
QPM LAWSON Administration
Dextrose 12.5 grams 10/05/23 14:51
Dextrose 50% (0.5 Grams/Ml) 50 Ml Syringe IV 11/02/23 14:50
[id number] PRN
hypoglycemia
Protocol
Enoxaparin Sodium 40 mg 10/04/23 20:36 10/06/23 17:25
Enoxaparin Sodium 40 Mg/0.4 Ml Syringe SC 11/01/23 20:35 40 mg
QPM LAWSON Administration
Fenofibrate 145 mg 10/04/23 21:00 10/06/23 17:25
Fenofibrate 145 Mg Tablet PO 11/01/23 20:59 145 mg
QPM LAWSON Administration
Glucagon 1 mg 10/05/23 14:51
Glucagon 1 Mg Vial IM 11/02/23 14:50
PRN PRN
hypoglycemia
Protocol
Insulin Aspart 0 units 10/05/23 16:30 10/07/23 08:51
Insulin Aspart Moderate Resistance 300 Units/3 Ml Pen.Injctr SC 11/02/23 16:29 1 units
AC LAWSON Administration
Protocol
Insulin Aspart Prota 70%/Aspart 30% 28 units 10/06/23 12:00 10/07/23 08:52
Novolog Mix 70/30 (100 Units/Ml) 3 Ml Flexpen SC 11/03/23 11:59 28 units
DAILY LAWSON Administration
Insulin Aspart Prota 70%/Aspart 30% 24 units 10/06/23 17:00 10/06/23 17:46
Novolog Mix 70/30 (100 Units/1 Ml) 10 Ml Vial SC 11/02/23 16:59 24 units
DAILY@1700 LAWSON Administration
Oxycodone HCl 10 mg 10/04/23 20:36
Oxycodone 10 Mg Regular Release Tablet PO 10/18/23 20:35
Q6HPRN PRN
moderate pain
Pantoprazole Sodium 40 mg 10/07/23 08:00 10/07/23 08:02
Pantoprazole 40 Mg Delayed Release Tablet PO 11/04/23 07:59 40 mg
DAILY LAWSON Administration
Prednisone 40 mg 10/07/23 08:00 10/07/23 08:02
Prednisone 20 Mg Tablet PO 11/04/23 07:59 40 mg
DAILY LAWSON Administration
Sodium Chloride 0 flush 10/04/23 21:00
Sodium Chloride 0.9% (Flush) Syringe IV 11/01/23 20:59
PER PROTOCOL LAWSON
Home Medications
�Medication �Instructions �Recorded
aspirin 81 mg chewable tablet 81 mg PO DAILY Blood Clot 10/04/23
Prevention/Tx
atorvastatin 20 mg tablet 40 mg PO QPM High Cholesterol 10/04/23
fenofibrate 160 mg tablet 160 mg PO QPM High Cholesterol 10/04/23
lidocaine 5 % topical patch 1 patch topical DAILYPRN PRN back 10/04/23
(Lidoderm) pain
metformin 500 mg tablet,extended 1,000 mg PO BIDWMEAL Diabetes 10/04/23
release 24 hr
oxycodone 10 mg tablet 10 mg PO Q6HPRN PRN moderate pain 10/04/23
pantoprazole 40 mg tablet,delayed 40 mg PO DAILY Gastrointestinal 10/04/23
release Issue
semaglutide 1 mg/dose (4 mg/3 mL) 1 mg SC SA Diabetes 10/04/23
subcutaneous pen injector (Ozempic)
insulin lispro protamine-lispro 22 unit SC QACDINNER Diabetes 10/05/23
100 unit/mL (75-25) subcutaneous
pen
insulin lispro protamine-lispro 23 - 25 unit SC DAILY Diabetes 10/05/23
100 unit/mL (75-25) subcutaneous
pen

Documented by User: Buddy Muñoz MD 10/10/23 21:48
Today's Communication / Plan
-
Attending Note: 63 yr. 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
[2023-10-07] MEDS: NOVOLOG FLEXPEN-MODERATE RESISTANCE 1 UNITS SC (08:51)
[2023-10-07] MEDS: NOVOLOG MIX 70/30 FLEXPEN 28 UNITS SC (08:52)
--- NOTE | 2023-10-07 10:44 | PTOTSP ---
SPEECH THERAPY SWALLOW THERAPY FOLLOW UP NOTE:
Patient continues to exhibit clinical signs of oropharyngeal dysphagia, likely chronic related to known cervical osteophytes and acutely related to right tongue swelling of unknown etiology. Recommend Videofluoroscopic Swallowing Study to further
assess swallow physiology. Given chronicity of dysphagia, stability of respiratory/pulmonary status, and ability of patient to implement safe swallow strategies/aspiration precautions, patient appears safe to continue oral diet (Regular texture
solids, thin liquids) until VSE with aspiration precautions in place. Recommend increased mobility as able/tolerated and oral care 3x/day to reduce risk for nosocomial infection. Speech therapy to continue to follow.
RECOMMEND:
1) Videofluoroscopic Swallowing Study
2) Regular texture solids, thin liquids
3) Medications whole in puree
4) Upright positioning; Small single sips; Small bites; Slow rate of intake; Selecting soft/moist textures with extra sauces/gravies as needed; Alternating textures and interspersing liquids; Chewing on Left; Checking for pocketing on Right; Liquid
wash; Finger/lingual sweep; Remain upright 30 minutes after eating/drinking. Medications whole in puree. D/c oral diet and make NPO prior to VSE should patient exhibit any signs concerning for aspiration or a decline in mental or respiratory status
5) Speech therapy to follow
6) increased mobility as able/tolerated and oral care 3x/day to reduce risk for nosocomial infection
--- NOTE | 2023-10-07 10:56 | CON.MD ---
Consultation - Medical
-
tongue weakness, dysphagia
63 yo c Hx DM, GERD, cervical osteophytes with some chronic swallowing issues presents w a few day Hx of R tongue swelling , slurred speech and worsening dysphagia
Hx similar Sx 1 mo ago, evaluated in [place], negative MRI, symptoms resolved. Was placed on Plavix briefly and daily ASA for presumed transient ischemia
Also had some temporary R facial droop in [place], which also resolved after about 1 day
Presently, still c speech issues due to tongue weakness. Neel diet. Had a Barium swallow, which demonstrated his known osteophytes. He did aspirate , but states he was gulping the barium, and usually does not have aspiration symptoms , just long
standing dysphagia likely from the osteophytes and GERD
PE - Tongue with fasciculations bilat, L side of tongue seems atrophic, with tongue deviating to left
Flex endo - vocal cords mobile bilat, mild arytenoid edema, no lesions or paralysis
A/P Tongue weakness - seems like L sided tongue atrophy and weakness, which would cause tongue to deviate to left
Etiology would likely be vascular/ ischemic, viral or potentially part of other neurologic disorder
Agree with steroids to reduce any inflammatory component x about 1 week
Continue reflux meds
Pt being followed by neuro and has MRI pending
[2023-10-07 11:00] VITALS: BP 147/88
[2023-10-07 12:40] LABS: Glucose - Point of Care 200 mg/dl (70-99)
[2023-10-07] MEDS: NOVOLOG FLEXPEN-MODERATE RESISTANCE 3 UNITS SC ×2 (12:54→17:08)
--- NOTE | 2023-10-07 14:33 | W.PN.HOSP.TC ---
Today's Communication/Plan
-
Follow MRI C spine
Assessment / Plan
Assessment / Plan
IMPRESSION:
63-year-old male with history of type 2 diabetes, who presented to the ED with slurred speech, headache, and swallowing difficulty
PLAN:
Speech difficulty that is slurred, swallowing difficulty, and right sided headache on presentation.
Patient had felt that the right side of the tongue was more prominent and swollen and initially benefit of doubt was given to unilateral angioedema of the tongue which is rare. patient a month ago apparently at a similar time deviation and swelling
which improved and then reoccurred. Despite steroids he did not see improvement. 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 There are also fasiculations of tongue noted . Unclear the level of palsy . Based on
data less likely angioedema of tongue.
Appt neurology input - ddx noted
Await MRI C spine.
CHUNG - right sided for for few weeks and now resolved - possible Cervical radiculopathy and improvement with steroids. Will continue steroids for a week but at a lower dose. Await MRI of the cervical spine.
Chronic dysphagia before coming to the hospital-patient had DISH of cervical spine noted . Barium swallow shows Very large bridging anterior vertebral body endplate osteophytes at multiple cervical levels consistent with severe diffuse idiopathic
skeletal hyperostosis (DISH) causing severe impingement on the posterior wall of the cervical esophagus.No esophageal obstruction. NSG input noted.
Aspiration during BS test noted - eval for pharygeal phase of deglutation - Speech cleared for regular diet but requesting VSE but pt is not keen to wait till tomorrow and get it as he want to leave today after MRI c spine.
Type 2 diabetes mellitus
-Diabetic diet
-Resume metformin
-Continue insulin with modifications per diabetic [employer]
-Low res insulin sliding scale, Accu-Cheks
History of TIA:
Questionable, given similar presentation
-Continue aspirin 81 mg
DVT prophylaxis: Lovenox subQ
CODE STATUS: Full code
Anticipated Discharge: Within 24 hours
Subjective/Interval History
-
Date of Service: October 07, 2023
Something different was that he couldnt chew as stronger.
Swallowing okay without difficulty. Speech much the same that is slurred.
No Recurrence of right-sided headache since yesterday.
Objective Data
-
Vital Signs:
Vital Signs
Temp Pulse Resp BP Pulse Ox
98.9 F 78 19 147/88 96
10/07/23 11:00 10/07/23 11:00 10/07/23 11:00 10/07/23 11:00 10/07/23 11:00
I&O
10/06/23 10/07/23 10/08/23
06:59 06:59 06:59
Intake Total 840 / 840 960 / 960
Balance 840 / 840 960 / 960
Review of Systems
-
Constitutional: Denies Fever or Chills
EENT: Denies Sore Throat
Respiratory: Denies Cough or Trouble Breathing
Cardiac: Denies Chest Pain
Abdomen/GI: Denies Abdominal Pain, Nausea or Vomiting
Neuro: Denies Weakness, Numbness or Ataxia
Physical Exam
-
General: No Apparent Distress
HEENT: Moist Mucous Membranes
Respiratory: Clear to Auscultation
Cardiac: Regular Rhythm and S1/S2
GI: Soft
Neuro: AO x 3, No Motor Deficits, Slurred Speech and Other (tongue deviated to left ); Negative Facial Droop
Psych: Calm; Negative Confused or Agitated
[2023-10-07 14:49] LABS: TSH Reflex To Free T4 0.06 uIU/ml (0.47-4.68)
[2023-10-07 14:53] LABS: Ferritin 47.3 ng/ml (17.9-464.0)
[2023-10-07 15:16] LABS: Free T4 1.49 ng/dl (0.78-2.19)
[2023-10-07 15:24] LABS: Folate 5.2 ng/ml (2.76-20); Vitamin B12 284 pg/ml (239-931)
[2023-10-07 17:06] LABS: Glucose - Point of Care 247 mg/dl (70-99)
[2023-10-07] MEDS: NOVOLOG MIX 24 UNITS SC (17:09)
[2023-10-07] MEDS: LOVENOX SC (17:10)
[2023-10-07] MEDS: TRICOR 145 MG PO (17:16)
--- NOTE | 2023-10-07 17:37 | W.DS.TRANS ---
DC Summary - Drawing In Hand
-
Discharge Instructions:
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
significant DISH of c spine with local
compression of adjacent esophagus; dysphagia
Diet Regular
Activity As tolerated
Driving Restrictions As prior to admission
Bathing Restrictions None
Other Services ST
Instructions:
Stand-Alone Forms:
Changes to Home Medications: Yes
Discharge Medications:
DC Medications w/original date entered in [facility]
aspirin 81 mg chewable tablet 81 mg PO DAILY Blood Clot Prevention/Tx 10/04/23
atorvastatin 20 mg tablet 40 mg PO QPM High Cholesterol 10/04/23
fenofibrate 160 mg tablet 160 mg PO QPM High Cholesterol 10/04/23
lidocaine 5 % topical patch (Lidoderm) 1 patch topical DAILYPRN PRN back pain 10/04/23
metformin 500 mg tablet,extended release 24 hr 1,000 mg PO BIDWMEAL Diabetes 10/04/23
oxycodone 10 mg tablet 10 mg PO Q6HPRN PRN moderate pain 10/04/23
pantoprazole 40 mg tablet,delayed release 40 mg PO DAILY Gastrointestinal Issue 10/04/23
semaglutide 1 mg/dose (4 mg/3 mL) subcutaneous pen injector (Ozempic) 1 mg SC SA Diabetes 10/04/23
insulin lispro protamine-lispro 100 unit/mL (75-25) subcutaneous pen 24 unit (0.24 mL) SC QACDINNER Diabetes #0 mL 10/07/23
insulin lispro protamine-lispro 100 unit/mL (75-25) subcutaneous pen 28 unit (0.28 mL) SC DAILY Diabetes #0 mL 10/07/23
prednisone 20 mg tablet 40 mg (2 x 20 mg) PO DAILY #12 tabs 10/07/23
Home Medication Changes
New med - prednisone
Pending Results: No
--- NOTE | 2023-10-08 14:53 | W.DCSUMMARY ---
Documented by User: Danni Bullard MD, Resident 10/08/23 15:51
Discharge Summary
Discharge Data
Date of Admission: 10/04/23
Date of Discharge: 10/07/23
-
Pending Results: No
Hospital Course
Discharge physician: Danni Bullard MD; Tony Tanner MD.
Primary discharge diagnosis: Left hypoglossal nerve palsy, diffuse idiopathic skeletal hyperostosis of C-spine with local compression of adjacent esophagus, dysphagia
Chronic discharge diagnosis: Type 2 diabetes mellitus, history of TIA, headache
Hospital course: 63-year-old male with history of type 2 diabetes, who presented to the ED on 10/03 with slurred speech headache and swallowing difficulty. On arrival to the ED blood pressure 175/93 with other vitals stable. CBC/CMP/coagulation
studies were normal. Physical exam was positive for slurred speech and left tongue deviation with mild swelling of right tongue, tongue fasciculations, no facial palsy, uvula deviation or other neurological deficits. Head CT showed no acute
abnormality, EKG was on remarkable. He was started on aspirin, given Tylenol for headache.
He was started on dexamethasone and antihistamines for presumed angioedema pending further workup. Given dysphagia, there was a speech therapy evaluation, with recommendations for regular texture diet and thin liquids with aspiration precautions.
Symptoms persisted despite steroids therefore steroid taper was started and antihistamines were discontinued. ENT evaluation revealed no acute airway process.
Given headache and neurological tongue findings, there was concern for left-sided hypoglossal nerve palsy. Evaluation by neurology revealed tongue hemiatrophy and leftward tongue deviation. MRI brain showed no acute intracranial abnormality.
C-Spine MRI showed slight compression of spinal cord. Pt was eager to return home and decline in-house video swallow evaluation.
Given dysphagia, barium swallow was ordered, revealed moderate aspiration, inability to swallow barium tablet, and DISH causing impingement on posterior cervical esophagus. Neurosurgery was then consulted
Home metformin dose was held for contrast imaging. Insulin was continued, with adjustments for elevated blood sugar secondary to steroid admin.
Aspirin 81 mg was continued throughout stay.
He remained stable throughout stay with no worsening/new symptoms. He was discharged on 10/06:
-To follow up with Neurodegenerative disorder specialist at [facility] for further evaluation
-Follow up with Neurology in one to two weeks
-follow up with neurosurgery in 1-2 weeks
-Follow up with PCP in 1 week of discharge. HbA1c was 8.0, TSH was 0.06 with normal free T4.
Data:
C-spine MRI 10/06: Diffusely prominent ossification anterior to the cervical spine from C3 through C7, which is likely from DISH. This is slightly greater toward the left, results in compression of the left posterior wall of the pharynx and upper
cervical esophagus. Changes of degenerative disc disease, which are probably greatest at C3-4 and C4-5. There is slight compression of the spinal cord at these levels. See above narrative for detailed findings at each level. Normal signal intensity
of the cervical and visualized upper thoracic spinal cord with no evidence for abnormal enhancement.
Brain MRI 10/06: no evidence of acute intracranial abnormality. Mild diffuse atrophy. Mild T2 and FLAIR white matter hyperintensities, commonly seen with aging and usually attributed to small vessel ischemic disease. See above discussion.
Barium swallow x-ray 10/05:
1. MODERATE AIRWAY ASPIRATION of BARIUM CONTRAST.
2. Very large bridging anterior vertebral body endplate osteophytes at multiple cervical levels consistent with severe diffuse idiopathic skeletal hyperostosis (DISH) causing severe impingement on the posterior wall of the cervical esophagus.
3. Mild esophagitis in the mid and distal esophagus.
4. Mild to moderate gastroesophageal reflux.
5. Unable to swallow a barium impregnated tablet.
Neck CT 10/03: Large anterior longitudinal ligament ossifications from C3 through C7 with some mass effect on the hypopharynx and upper cervical esophagus. Findings may contribute to the patient's difficulty swallowing. A fluoroscopic video swallow
exam in conjunction with speech pathology could be considered for further evaluation if clinically indicated.
Head CT 10/03: Unenhanced CT imaging of the head reveals no findings to suggest recent infarction, intracranial hemorrhage, extra-axial fluid collection, mass effect or midline shift. The ventricles, cisterns and sulci are within the limits of
normal. The brainstem and posterior fossa structures demonstrate no significant focal abnormality
EKG 10/03: Normal sinus rhythm. Minimal voltage criteria for LVH, may be normal variant. Inferior infarct, age undetermined. Cannot rule out anterior infarct, age undetermined.
Consult:
Neurology consult
Neurosurgery consult
ENT consult
Diabetes management
Discharge Plan
-
Patient Disposition: Home (Routine Discharge)
Discharge Diagnosis/Procedures: Left hypoglossal nerve palsy of unclear etiolgy; significant DISH of c spine with local compression of adjacent esophagus; dysphagia
Diet: Regular
Activity: As tolerated
Driving Restrictions: As prior to admission
Bathing Restrictions: None
Other Services: ST
Activity Restrictions/Additional Instructions:
Follow with speech for video swallow study -referral given
Referrals:
Yonatan Ascencio DO [Active] - in one to two weeks
Adolfo Calloway MD [Active] - in two weeks
(Other neurologist in the area you can follow up with
)
Buddy Muñoz MD [Active] - in one to two weeks
Jasper Muñoz DO [Family Provider] - in less than 1 week
Prescriptions:
New
prednisone 20 mg Tablet
40 mg PO DAILY Qty: 12 0RF
Rx Instructions:
for 6 more days and stop
Continued
atorvastatin 20 mg tablet
40 mg PO QPM
pantoprazole 40 mg tablet,delayed release (DR/EC)
40 mg PO DAILY
lidocaine [Lidoderm] 5 % Adhesive Patch,Medicated
1 patch TOPICAL DAILYPRN PRN (Reason: back pain)
aspirin 81 mg tablet,chewable
81 mg PO DAILY
metformin 500 mg tablet extended release 24 hr
1,000 mg PO BIDWMEAL
fenofibrate 160 mg tablet
160 mg PO QPM
oxycodone 10 mg tablet
10 mg PO Q6HPRN PRN (Reason: moderate pain)
Patient Comments:
10/04/2023: last filled 09/09/23, 120 tabs for 30 days from [facility]
Ozempic 1 mg/dose (4 mg/3 mL) pen injector
1 mg SC SA
Changed
insulin lispro protamin-lispro 100 unit/mL (75-25) insulin pen
28 unit SC DAILY Qty: 0 0RF
insulin lispro protamin-lispro 100 unit/mL (75-25) insulin pen
24 unit SC QACDINNER Qty: 0 0RF
Discharge Orders:
Discharge Patient (As Directed); Ordered 10/07/23
Ordered By: Tony Tanner
Discharge Date and Time
Discharge Date/Time: 10/07/23 18:40
Print Language: JAPANESE

Documented by User: Tony Tanner MD 10/09/23 18:13
Discharge Summary
Discharge Data
Date of Admission: 10/04/23
Date of Discharge: 10/09/23
Hospital Course
Discharge physician: Danni Bullard MD; Tony Tanner MD.
Primary discharge diagnosis: Left hypoglossal nerve palsy, diffuse idiopathic skeletal hyperostosis of C-spine with local compression of adjacent esophagus, dysphagia
Chronic discharge diagnosis: Type 2 diabetes mellitus, history of TIA, headache
Hospital course: 63-year-old male with history of type 2 diabetes, who presented to the ED on 10/03 with slurred speech headache and swallowing difficulty. On arrival to the ED blood pressure 175/93 with other vitals stable. CBC/CMP/coagulation
studies were normal. Physical exam was positive for slurred speech and left tongue deviation with mild swelling of right tongue, tongue fasciculations, no facial palsy, uvula deviation or other neurological deficits. Head CT showed no acute
abnormality, EKG was on remarkable. He was started on aspirin, given Tylenol for headache.
He was started on dexamethasone and antihistamines for presumed angioedema pending further workup. Given dysphagia, there was a speech therapy evaluation, with recommendations for regular texture diet and thin liquids with aspiration precautions.
Symptoms persisted despite steroids therefore steroid taper was started and antihistamines were discontinued. ENT evaluation revealed no acute airway process.
Given headache and neurological tongue findings, there was concern for left-sided hypoglossal nerve palsy. Evaluation by neurology revealed tongue hemiatrophy and leftward tongue deviation. MRI brain showed no acute intracranial abnormality.
C-Spine MRI showed Diffusely prominent ossification anterior to the cervical spine from C3 through C7, which is likely from DISH. This is slightly greater toward the left, results in compression of the left posterior wall of the pharynx and upper
cervical esophagus and slight compression of spinal cord at C3-4 AND c4-5 levels .
The Significant DISH cervical spinel findings and isolated the left hypoglossal nerve palsy the concern is if the hypoglossal nerve injury or compression during its course down to the tongue. Seen by neuro surgery while in house ;they will follow
as OP and eval for surgical interventions.
Given dysphagia, barium swallow was ordered, revealed moderate aspiration, inability to swallow barium tablet, and DISH causing impingement on posterior cervical esophagus. He did on with speech eval at bedside but VSE was recommended due to all the
above findingd .Pt was eager to return home and decline in-house video swallow evaluation.
Home metformin dose was held for contrast imaging. Insulin was continued, with adjustments for elevated blood sugar secondary to steroid admin.
Aspirin 81 mg was continued throughout stay.
He remained stable throughout stay with no worsening/new symptoms. He was discharged on 10/06:
-To follow up with Neurodegenerative disorder specialist at [facility] for further evaluation
-Follow up with Neurology in one to two weeks
-follow up with neurosurgery in 1-2 weeks
-Follow up with PCP in 1 week of discharge. HbA1c was 8.0, TSH was 0.06 with normal free T4.
Data:
C-spine MRI 10/06: Diffusely prominent ossification anterior to the cervical spine from C3 through C7, which is likely from DISH. This is slightly greater toward the left, results in compression of the left posterior wall of the pharynx and upper
cervical esophagus. Changes of degenerative disc disease, which are probably greatest at C3-4 and C4-5. There is slight compression of the spinal cord at these levels. See above narrative for detailed findings at each level. Normal signal intensity
of the cervical and visualized upper thoracic spinal cord with no evidence for abnormal enhancement.
Brain MRI 10/06: no evidence of acute intracranial abnormality. Mild diffuse atrophy. Mild T2 and FLAIR white matter hyperintensities, commonly seen with aging and usually attributed to small vessel ischemic disease. See above discussion.
Barium swallow x-ray 10/05:
1. MODERATE AIRWAY ASPIRATION of BARIUM CONTRAST.
2. Very large bridging anterior vertebral body endplate osteophytes at multiple cervical levels consistent with severe diffuse idiopathic skeletal hyperostosis (DISH) causing severe impingement on the posterior wall of the cervical esophagus.
3. Mild esophagitis in the mid and distal esophagus.
4. Mild to moderate gastroesophageal reflux.
5. Unable to swallow a barium impregnated tablet.
Neck CT 10/03: Large anterior longitudinal ligament ossifications from C3 through C7 with some mass effect on the hypopharynx and upper cervical esophagus. Findings may contribute to the patient's difficulty swallowing. A fluoroscopic video swallow
exam in conjunction with speech pathology could be considered for further evaluation if clinically indicated.
Head CT 10/03: Unenhanced CT imaging of the head reveals no findings to suggest recent infarction, intracranial hemorrhage, extra-axial fluid collection, mass effect or midline shift. The ventricles, cisterns and sulci are within the limits of
normal. The brainstem and posterior fossa structures demonstrate no significant focal abnormality
EKG 10/03: Normal sinus rhythm. Minimal voltage criteria for LVH, may be normal variant. Inferior infarct, age undetermined. Cannot rule out anterior infarct, age undetermined.
Consult:
Neurology consult
Neurosurgery consult
ENT consult
Diabetes management
Discharge Plan
-
Patient Disposition: Home (Routine Discharge)
Discharge Diagnosis/Procedures: Left hypoglossal nerve palsy of unclear etiolgy; significant DISH of c spine with local compression of adjacent esophagus; dysphagia
Diet: Regular
Activity: As tolerated
Driving Restrictions: As prior to admission
Bathing Restrictions: None
Other Services: ST
Activity Restrictions/Additional Instructions:
Follow with speech for video swallow study -referral given
Referrals:
Yonatan Ascencio DO [Active] - in one to two weeks
Adolfo Calloway MD [Active] - in two weeks
(Other neurologist in the area you can follow up with
)
Buddy Muñoz MD [Active] - in one to two weeks
Jasper Muñoz DO [Family Provider] - in less than 1 week
Prescriptions:
New
prednisone 20 mg Tablet
40 mg PO DAILY Qty: 12 0RF
Rx Instructions:
for 6 more days and stop
Continued
atorvastatin 20 mg tablet
40 mg PO QPM
pantoprazole 40 mg tablet,delayed release (DR/EC)
40 mg PO DAILY
lidocaine [Lidoderm] 5 % Adhesive Patch,Medicated
1 patch TOPICAL DAILYPRN PRN (Reason: back pain)
aspirin 81 mg tablet,chewable
81 mg PO DAILY
metformin 500 mg tablet extended release 24 hr
1,000 mg PO BIDWMEAL
fenofibrate 160 mg tablet
160 mg PO QPM
oxycodone 10 mg tablet
10 mg PO Q6HPRN PRN (Reason: moderate pain)
Patient Comments:
10/04/2023: last filled 09/09/23, 120 tabs for 30 days from [facility]
Ozempic 1 mg/dose (4 mg/3 mL) pen injector
1 mg SC SA
Changed
insulin lispro protamin-lispro 100 unit/mL (75-25) insulin pen
28 unit SC DAILY Qty: 0 0RF
insulin lispro protamin-lispro 100 unit/mL (75-25) insulin pen
24 unit SC QACDINNER Qty: 0 0RF
Discharge Orders:
Discharge Patient (As Directed); Ordered 10/07/23
Ordered By: Tony Tanner
Discharge Date and Time
Discharge Date/Time: 10/07/23 18:40
Print Language: JAPANESE
== END 2023-10-07 18:40 | disposition home or self-care (01) | DRG 74 ==
LOC: 3 WEST ACU 18:55
PROVIDERS: Student in an Organized Health Care Education/Training Program; ADMITTING PHYSICIAN Internal Medicine; CONSULT PHYSICIAN Psychiatry & Neurology Neurology; EMERGENCY PHYSICIAN Emergency Medicine; FAMILY PHYSICIAN Family Medicine; OTHER PHYSICIAN Neurological Surgery; OTHER PHYSICIAN Otolaryngology
DX: G52.3 Disorders of hypoglossal nerve (principal); M48.12 Ankylosing hyperostosis [Forestier], cervical region; E11.9 Type 2 diabetes mellitus without complications; I10 Essential (primary) hypertension; R51.9 Headache, unspecified; R13.19 Other dysphagia; K14.8 Other diseases of tongue; E78.5 Hyperlipidemia, unspecified; Z88.0 Allergy status to penicillin; Z79.82 Long term (current) use of aspirin; Z79.4 Long term (current) use of insulin; Z79.85 Long-term (current) use of injectable non-insulin antidiabetic drugs; Z79.84 Long term (current) use of oral hypoglycemic drugs; Z79.891 Long term (current) use of opiate analgesic
CPT/HCPCS: 70450; 70491; 70553; 72156; 74210; 80048; 80053; 82607; 82728; 82746; 82962; 83036; 84439; 84443; 85025; 85027; 85610; 85652; 85730; 92523; 92526; 92610; 93005; 99285; A9575; Q9967